=== PATIENT | male | born 1990 | race American Indian/Alaskan Native ===

== ENCOUNTER 2017-04-28 21:40 | Emergency (ER) | payer SELFPAY ==
[~2017-04-28] VITALS: Ht 175.3 cm; Wt 94.5 kg
[2017-04-28 21:41] VITALS: BP 141/105
[2017-04-28] MEDS ORDERED: KETOROLAC 30 MG/1 ML ONE (22:20)
[2017-04-28] MEDS ORDERED: METHOCARBAMOL 750 MG TABLET ONE (22:20)
[2017-04-28] MEDS ORDERED: METHOCARBAMOL 750 MG TABLET PO ONE (22:30)
[2017-04-28] MEDS ORDERED: KETOROLAC 30 MG/1 ML IM ONE (22:30)
== END 2017-04-28 23:34 | disposition home or self-care (01) ==
LOC: ED 23:28
DX: S39.012A Strain of muscle, fascia and tendon of lower back, initial encounter (principal); M62.830 Muscle spasm of back; X58.XXXA Exposure to other specified factors, initial encounter; Y93.89 Activity, other specified; Y99.8 Other external cause status; Y92.89 Other specified places as the place of occurrence of the external cause
CPT/HCPCS: 72110; 96372; 99284; J1885